=== PATIENT | female | born 1955 | race Caucasian/White ===

== ENCOUNTER 2016-06-24 02:53 | Inpatient (IN) | payer OTHER ==
[~2016-06-24] VITALS: Ht 162.6 cm; Wt 108.9 kg
[~2016-06-24 02:53] MED LIST: CHLORTHALIDONE25 M1 PO; CITALOPRAM HBR20 MG PO; CRESTOR20 M2 PO
--- NOTE | 2016-06-24 09:58 | Operative Report ---
Operative/Inv Procedure Report Surgery Date: 06/24/16 Name of Procedure: Right total hip arthroplasty Pre-Operative Diagnosis: Primary right hip osteoarthritis Post-Operative Diagnosis: Same Estimated Blood Loss: 50ml to 100ml Surgeon/Personal Financial Representative: TD FARRELL,Yasmani PEREZ Anesthesia: general endotracheal tube Implants: Size 8 secure fit Cristian femoral stem with a 127 neck angle Size 54 acetabulum Trident 36+0 Biolox femoral head Drains: None Specimens: Femoral head and acetabular reamings Microbiology: Urine Complications: None Condition: Stable Operative Indication: -60 year-old woman with a history of gradually worsening right hip pain. She had been evaluated elsewhere and was told that she needed a total hip arthroplasty. She was seen in our office as a second opinion and x-rays revealed near end-stage degenerative changes. She had a shallow acetabulum with edge loading the superior aspect of the hip. Due to these findings and patient' s persistent symptoms that interfere with normal activities of daily living, we also recommended total hip arthroplasty. She wished to proceed with this after risks, benefits and expectations were discussed which included but were not limited to persistent hip pain, need for subsequent surgery, infection, DVT, injury to blood vessel or nerve, anesthesia risks, dislocation and leg length discrepancy Operative/Procedure Note Note: Patient was brought to the operating room and transferred to the operating table. Once under appropriate anesthesia the patient was placed in a left lateral decubitus position with right side up. All bony prominences were well- padded. Axillary roll was placed. The right lower extremity was prepped and draped in standard fashion. Preoperative IV antibiotics were given prophylactically. A standard lateral incision was made for anticipated posterior lateral/superior approach of the hip. The incision was taken down sharply to the underlying fascia. The fascia was incised in line with the skin incision. There was significant depth to the wound. Hip was internally rotated placing the external rotators on tension. The piriformis was isolated. It was relatively smaller than normal. This was incised and reflected posteriorly. The interval between the gluteus minimus tendon and the superior capsule was identified and a retractor was placed in this interval. I also placed an inferior retractor delineating the inferior extent of the capsule. Patient had a fairly large effusion which was evacuated was clear fluid. A central portion of the posterior capsule was incised and reflected posteriorly. Superior and inferior portions of the capsule were excised. The central portion was tacked reflected posteriorly. Hip was dislocated. Severe end-stage degenerative changes and eburnated bone of the femoral head. The femoral neck cut was then made a stop on preoperative templating and intraoperative measurements. The acetabulum was visualized. There was significant severe osteoarthritis of the acetabulum. Remnants of the degenerative labral tissues were excised. Any soft tissues were excised with a large curette and rongeur. I then reamed the acetabulum starting with a 46 and ending with a size 53 for anticipated insertion of a size 54 Trident acetabulum. The acetabular fossa was copiously irrigated. A major there was no circumferential remnants of soft tissue. I then impacted the definitive size 54 Trident acetabulum with the appropriate anteversion and abduction based on patient's anatomy as well as the [place] tower. I then placed 2 screws in the safe zone in standard fashion by drilling measuring and placing appropriate length screws. Copious irrigation of the component followed. I then inserted the definitive polyethylene to fit a 36 mm femoral head. The polyethylene locking mechanism was confirmed. I then placed a lap sponge to protect the polyethylene during preparation of the femur. The hip was internally rotated 90 and flexed to about 60. Retractors were placed and then I used the box osteotome to lateralize my insertion site. This was followed by hand reamers up to a size 8 and I broached to a size 8 filled patient's proximal femur very well. I left the last broach in place and then did a closed reduction of the hip using the 36 mm +0 head. I trialed the 127 as well as 132. I was satisfied with the stability with both but I felt that she would benefit from the 127 neck angle to maximize her abductors based on my preoperative exam and her gait pattern preoperatively. I then dislocated the hip after confirming stability in all planes. I removed the trial components from the femur and then copiously irrigated the femoral canal. The definitive size 8 secure fit femoral stem was impacted in place with the 127 neck angle. The trunnion was dried and the definitive 36+0 Biolox femoral head was impacted in place. The locking mechanism was confirmed. The hip was reduced. There was jewish of the length of the lower extremity matching the other side as well as matching the measurements done preoperatively and intraoperatively. The stability was checked. No evidence of posterior instability with simultaneous flexion internal rotation and adduction. No evidence of anterior instability with simultaneous external rotation and extension. Copious irrigation of the hip followed. The posterior capsule was repaired the piriformis was repaired. Every level of closure was followed by copious irrigation. I did do a periarticular pericapsular injection of a cocktail which included ropivacaine with epinephrine and Toradol. The fascia was closed with interrupted #1 Vicryl suture. Subcutaneous tissues closed in 2-0 Vicryl in 2 layers due to the depth of the wound. Skin was closed with elise. Appropriate dressings were applied and patient was awakened and taken to recovery room in good condition. No intraoperative Locations. Blood loss was approximately 100 mL Discharge Disposition: PACU
--- NOTE | 2016-06-24 10:35 | RADIOLOGY REPORT ---
EXAMINATION: AP view of the right hip CLINICAL INFORMATION: Status post right total hip replacement. COMPARISON: None available. TECHNIQUE: Single AP view of the hip is obtained. FINDINGS: There are postoperative changes following right total hip arthroplasty. The prosthesis elements appear well aligned. No acute fractures are identified. Surgical elise are appreciated along the right thigh. There is mild subcutaneous gas. No radiopaque foreign bodies are identified. IMPRESSION: Expected postoperative changes following right total hip arthroplasty. No acute osseous findings.
[2016-06-24 11:30] VITALS: BP 130/58
--- NOTE | 2016-06-24 14:08 | PN- Orthopedic ---
Subjective Subjective: The patient was seen this afternoon postoperatively. She reports the pain is under adequate control with no complaints the current time. He was very pleased on how well she does with physical therapy today. Objective Vital Signs and I&Os Afebrile stable vital signs Physical Exam: Gen.: Alert and in no obvious distress Skin: Warm and dry Cardiac: S1-S2 regular Primary: Bilateral breath sounds equal decreased at bases Extremities: Bilateral lower extremities are warm without calf tenderness or significant edema. Gross motor and sensory are intact. Surgical dressing is clean, dry, and intact without signs of infection. Assessment/Plan Assessment/Plan Assessment: 60-year-old female status post right total hip arthroplasty. Postoperative patient is progressing as expected and her pain is under adequate control. Plan: Continue IV fluids a Sibley catheter until morning Strict I's and O's GI and DVT prophylaxis begin Coumadin first dose starting tonight Follow-up morning laboratory studies Continue current pain regiment Postoperative prophylactic antibiotics Out of bed with physical therapy patient is weightbearing as tolerated Core Measures/Miscellaneous Sibley Catheter Date In: 06/24/16 Still Needed? Yes Venous Thromboembolism VTE Risk Factors: Age > 40, Obesity, Surgery VTE Contraindications: No Contraindications VTE Prophylaxis Ordered Inpt: Mech & Pharm VTE Diagnosis: No Beta Demetra Is Beta Demetra a Home Med? Yes If Yes, Was This Ordered Today? Yes Antibiotics Is Patient on Antibiotics? Yes If Yes: prophylaxis
[2016-06-24 14:16] VITALS: BP 135/77
[2016-06-24 15:45] VITALS: BP 128/76
[2016-06-24 19:23] VITALS: BP 127/69
[2016-06-25 00:38] VITALS: BP 114/56
[2016-06-25 03:35] VITALS: BP 100/46
[2016-06-25 08:00] VITALS: BP 103/57
[2016-06-25 08:04] LABS: ABSOLUTE BASOPHIL COUNT 0 /CUMM (0.0-0.2); ABSOLUTE EOSINOPHIL COUNT 0 /CUMM (0.0-0.7); ABSOLUTE GRANULOCYTE CT 5.6 /CUMM (1.4-6.5); ABSOLUTE LYMPH COUNT 1.1 /CUMM (1.2-3.4); ABSOLUTE MONOCYTE COUNT 0.7 /CUMM (0.10-0.60); BASOPHIL % 0.1 % (0.0-2.0); EOSINOPHIL % 0.3 % (0-5); GRANULOCYTE % 75.7 % (42.2-75.2); HEMATOCRIT 29.2 % (37-47); MEAN CORPUSCULAR HGB 29.9 PG (27.0-31.0); MEAN CORPUSCULAR HGB CONC 33.6 G/DL (33.0-37.0); MEAN CORPUSCULAR VOLUME 89.1 FL (81.0-99.0); MEAN PLATELET VOLUME 7.7 FL (7.4-10.4); PLATELET COUNT 212 /CUMM (130-400); RBC DISTRIBUTION WIDTH 13.1 % (11.5-14.5); RED BLOOD CELL CT 3.27 /CUMM (4.20-5.40); WHITE BLOOD CELL COUNT 7.4 /CUMM (4.8-10.8)
[2016-06-25 09:00] LABS: PT 12.7 SEC (9.4-12.5)
[2016-06-25] MEDS ORDERED: RW (09:29)
--- NOTE | 2016-06-25 09:29 | PN- Orthopedic ---
See Addendum Subjective Subjective: Pain well controlled. Tolerating diet. No nausea. Out of bed with PT this morning without difficulty. No dizziness. No shortness of breath. No chest pains. Voiding well. Passing flatus but no bm yet. Anticipates discharge to home in the next 1-2 days. Objective Vital Signs and I&Os Vital Signs Date Time Temp Pulse Resp B/P Pulse O2 O2 Flow FiO2 Ox Delivery Rate 06/25 08 98.1 83 18 103/57 93 Room Air 06/25 0335 98.5 81 18 100/46 91 Room Air 06/25 0038 97.8 83 19 114/56 93 Room Air 06/24 204 150/78 06/24 2045 150/78 06/24 1923 99.0 85 20 127/69 95 Nasal 1.0L Cannula 06/24 1545 98.6 83 18 128/76 95 Nasal 1.0L Cannula 06/24 1454 76 135/77 06/24 1416 98.1 76 18 135/77 96 Nasal 2.0L Cannula 06/24 1145 97 Nasal 2.0L Cannula 06/24 1130 76 135/77 06/24 1130 98.4 68 18 130/58 97 Nasal 2.0L Cannula Intake & Output 06/25 1600 06/25 0800 06/25 0000 06/24 1600 06/24 0800 06/24 0000 Intake Total 950 475 680 Output Total 850 550 150 Balance 100 -75 530 Intake, IV 600 225 200 Intake, Oral 350 250 480 Output, Urine 850 550 150 Patient 240 lb Weight Physical Exam: General - alert & oriented x 3. comfortable. no acute distress. Lungs - clear bilaterally. no w/r/r. Cardiac - s1s2. reg. Abdomen - soft. bowel sounds appreciated. nontender. Extremities - warm b/l. right hip dressing c/d/i. nvi. hip pillow in place. calves soft and nontender. venodynes active b/l. Assessment/Plan Assessment/Plan 60-year-old female POD#1 s/p right total hip arthroplasty tolerating diet. d/c iv fluids lópez removed. due to void in 6-8 hours raeann-operative vanco completed f/u labs coumadin accordingly - dvt ppx continue PT daily dressing change tomorrow d/c planning for home in 1-2 days will d/w Core Measures/Miscellaneous López Catheter Date In: 06/24/16 Venous Thromboembolism VTE Risk Factors: Age > 40, Obesity, Surgery VTE Contraindications: No Contraindications VTE Prophylaxis Ordered Inpt: Mech & Pharm VTE Diagnosis: No Beta Demetra Is Beta Demetra a Home Med? Yes If Yes, Was This Ordered Today? Yes Antibiotics Is Patient on Antibiotics? Yes If Yes: prophylaxis
--- NOTE | 2016-06-25 09:31 | Patient Discharge Instructions ---
Discharge Instructions General Discharge Information You were seen/treated for: Primary right hip osteoarthritis You had these procedures: Surgery Date: 06/24/16 Name of Procedure: Right total hip arthroplasty Watch for these problems: fever>101.3, increased pain, redness/swelling/drainage Call Surgeon to remove: Lindsay No bath, but you may shower: Yes Other wound care: staple removal around post-op day#14. dry guaze dressing changes daily, right hip. Diet Continue normal diet: Yes Recommended Diet: Regular Limit DAILY fluid amt to mls: 1000 Additional DIET Information: coumadin considerations Activity Full Activity/No Limits: Yes Activity Self Limited: Yes Activity Limited to: Weight bear as tolerated Other activity limits: total hip precautions Additional ACTIVITY Info: rolling walker asssitance Acute Coronary Syndrome Inclusion Criteria At DC or during hospital stay patient has or had the following: ACS DIAGNOSIS No Discharge Core Measures Meds if any: Prescribed or Continued at Discharge Meds if any: NOT Prescribed or Continued at Discharge Congestive Heart Failure Inclusion Criteria At DC or during hospital stay patient has or had the following: CHF DIAGNOSIS No Discharge Core Measures Meds if any: Prescribed or Continued at Discharge Meds if any: NOT Prescribed or Continued at Discharge Cerebrovascular accident Inclusion Criteria At DC or during hospital stay patient has or had the following: CVA/TIA Diagnosis No Discharge Core Measures Meds if any: Prescribed or Continued at Discharge Meds if any: NOT Prescribed or Continued at Discharge Venous thromboembolism Inclusion Criteria VTE Diagnosis No VTE Type NONE VTE Confirmed by (Test) NONE Discharge Core Measures - Per Current guidelines, there needs to be overlap - treatment for the first 5 days of Warfarin therapy. - If discharged on Warfarin prior to 5 days of - overlap therapy, the patient will need to be - assessed for post discharge needs including - *Post discharge parental anticoagulation - *Warfarin and/or parental anticoagulation education - *Follow up date to check INR post discharge At least 5 days overlap therapy as Inpatient No Meds if any: Prescribed or Continued at Discharge Note: Overlap Therapy is Warfarin and Anticoagulant Meds if any: NOT Prescribed or Continued at Discharge
[2016-06-25] MEDS ORDERED: CARVEDILOL25 M1 PO (09:34)
[2016-06-25] MEDS ORDERED: ALTACE10 M2 PO (09:35)
[2016-06-25] MEDS ORDERED: CRESTOR40 M2 PO (09:35)
[2016-06-25] MEDS ORDERED: DOCUSATE SODIU100 M3 PO (09:38)
[2016-06-25] MEDS ORDERED: PERCOCET 5-3251 EACH PO (09:38)
[2016-06-25] MEDS ORDERED: COUMADIN5 M2 PO (09:38)
[2016-06-25 17:22] VITALS: BP 99/68
[2016-06-25 22:31] VITALS: BP 110/70
--- NOTE | 2016-06-26 06:56 | PN- Orthopedic ---
See Addendum Subjective Subjective: Patient seen this morning postoperatively day #2. She reports that her pain is under adequate control and has no other complaints at the current time. She is eager to try to go home possibly today but still has yet to do stairs with physical therapy. Objective Vital Signs and I&Os Vital Signs Date Time Temp Pulse Resp B/P Pulse O2 O2 Flow FiO2 Ox Delivery Rate 06/25 2230 98.7 76 20 110/70 90 Room Air 06/25 2126 82 138/76 06/25 2126 82 138/76 06/25 1722 97.1 76 18 99/68 93 06/25 1021 83 90/52 06/25 1020 83 90/52 06/25 0800 98.1 83 18 103/57 93 Room Air Intake & Output 06/26 0806/26 0000 06/25 1600 06/25 0800 06/25 0000 06/24 1600 Intake Total 048 815 9516 950 475 680 Output Total 300 625 200 850 550 150 Balance -60 -145 2140 100 -75 530 Intake, IV 300 600 225 200 Intake, Oral 363 921 9257 350 250 480 Number 0 0 0 Bowel Movements Output, Urine 300 625 200 850 550 150 Patient 240 lb Weight Physical Exam: Gen.: Alert and in obvious distress Skin: Warm and dry Extremities: Bilateral lower extremities are warm without calf tenderness or significant edema. Gross motor and sensory are intact. Right hip surgical incision was clean, dry, and intact without signs of infection. Assessment/Plan Assessment/Plan Assessment: 60-year-old female status post right total hip arthroplasty postoperative day #2. The patient is progressing as expected and her pain is under adequate control. Plan: Continue to work with physical therapy patient is weightbearing as tolerated she needs to work on stairs in order to be safe to go home. Follow-up morning laboratory studies and dose Coumadin for an INR between 2 and 3 Daily dry dressing change Continue current pain regiment GI and DVT prophylaxis Core Measures/Miscellaneous Sibley Catheter Date In: 06/24/16 Venous Thromboembolism VTE Risk Factors: Age > 40, Obesity, Surgery VTE Contraindications: No Contraindications VTE Prophylaxis Ordered Inpt: Mech & Pharm VTE Diagnosis: No Beta Demetra Is Beta Demetra a Home Med? Yes If Yes, Was This Ordered Today? Yes Antibiotics Is Patient on Antibiotics? No
[2016-06-26 07:57] LABS: ABSOLUTE BASOPHIL COUNT 0 /CUMM (0.0-0.2); ABSOLUTE EOSINOPHIL COUNT 0.2 /CUMM (0.0-0.7); ABSOLUTE GRANULOCYTE CT 3.8 /CUMM (1.4-6.5); ABSOLUTE LYMPH COUNT 1.4 /CUMM (1.2-3.4); ABSOLUTE MONOCYTE COUNT 0.6 /CUMM (0.10-0.60); BASOPHIL % 0.4 % (0.0-2.0); EOSINOPHIL % 2.7 % (0-5); GRANULOCYTE % 63.2 % (42.2-75.2); HEMATOCRIT 27.1 % (37-47); MEAN CORPUSCULAR HGB 30.8 PG (27.0-31.0); MEAN CORPUSCULAR HGB CONC 34.6 G/DL (33.0-37.0); MEAN CORPUSCULAR VOLUME 88.9 FL (81.0-99.0); MEAN PLATELET VOLUME 7.8 FL (7.4-10.4); PLATELET COUNT 185 /CUMM (130-400); RBC DISTRIBUTION WIDTH 13.2 % (11.5-14.5); RED BLOOD CELL CT 3.05 /CUMM (4.20-5.40); WHITE BLOOD CELL COUNT 6.1 /CUMM (4.8-10.8)
[2016-06-26 08:10] VITALS: BP 100/52
[2016-06-26 08:24] LABS: PT 12.4 SEC (9.4-12.5)
--- NOTE | 2016-06-26 09:39 | Surgical Discharge Summary ---
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 Home Who Do You Live With? Spouse Services at Home: None What is Your Primary Language? Swazi Review of Systems: see h&p Hospital Course Course Attending Physician: TD FARRELL,[facility] Primary Care Physician: LENCHO CANTRELL MD Hospital Course: Electively scheduled right total hip replacement by on 06/24/16 for primary right hip osteoarthritis, which went routinely. Started coumadin on the day of her surgery for blood clot risk reduction. Pain management with iv transitioned to oral medication. Consulted hospitalist on post-op day#2 for hyponatremia (na 126), elevated creatinine (cr 1.1), for which iv fluids was restarted. Coumadin dose adjusted daily as per blood draws for PT/INR. Doing well with PT. Seen by OT for adls and review of hip precautions, as her plan is for discharge to home tomorrow (post-op day#3) pending improvement of her current hyponatremia and mild dehydration. 06/27/[address] Mcintosh (via Brock Eagle M.D.) patient can be discharged home on 1000mL fluid restriction with NaCl 1000mg tabs BID and hold diuretics and NASIR inhibitors. Repeat Na levels tomorrow and Friday. Have labs sent to Dr. Higginbotham. Complications: None Allergies: Coded Allergies: No Known Allergies (06/14/16) Pertinent Lab Results: INR 1.18 (06/26/16) Disposition Summary Disposition Principal Diagnosis: Primary right hip osteoarthritis Additional Diagnosis: Surgery Date: 06/24/16 Name of Procedure: Right total hip arthroplasty post-op hyponatremia, mild dehydration requiring iv fluids Discharge Disposition: home health services Discharge Instructions General Discharge Information Code Status: Full Code Patient's Diet: regular, as tolerated. coumadin considerations. Patient's Activity: weight bearing as tolerated total hip precautions rolling walker assistance continue PT Follow-Up Instructions/Appts: call to schedule follow up appointment within one month after discharge staple removal around post-op day#14 blood draws for PT/INR. goal INR 2-3. dose adjustment of coumadin accordingly. dry guaze dressing changes daily, right hip Medications at Discharge Discharge Medications: Stop taking the following medications: Chlorthalidone (Chlorthalidone) 25 MG TABLET ORAL DAILY Ramipril (Altace) 10 MG CAPSULE ORAL TWICE DAILY Carvedilol (Carvedilol) (Unknown Strength) TABLET ORAL TWICE DAILY Ramipril (Altace) (Unknown Strength) CAPSULE ORAL TWICE DAILY Rosuvastatin Calcium (Crestor) (Unknown Strength) TABLET ORAL DAILY Rosuvastatin Calcium (Crestor) (Unknown Strength) TABLET ORAL DAILY Continue taking these medications: Citalopram Hydrobromide (Citalopram HBr) 20 MG TABLET 1 Tablet ORAL DAILY Comments: DOCUMENTED PER CMR DURING PRE-SX INTERVIEW Carvedilol (Carvedilol) 25 MG TABLET 1 Tablet ORAL TWICE DAILY Rosuvastatin Calcium (Crestor) 40 MG TABLET 1 Tablet ORAL DAILY Start taking the following new medications: Docusate Sodium (Docusate Sodium) 100 MG CAPSULE 100 Milligram ORAL TWICE DAILY as needed for CONSTIPATION Days = 14 No Refills Instructions: stool softener available over the counter Rolling Walker (Rolling Walker) UNIT 1 Unit SEE INSTRUCTIONS Qty = 1 No Refills Instructions: Use as instructed. Oxycodone HCl/Acetaminophen (Percocet 5-325 MG Tablet) 5 MG-325 MG TABLET 1-2 Tablet ORAL EVERY 4-6 HOURS NEEDED as needed for pain control Qty = 30 No Refills Instructions: take as directed, as needed. do not combine with tylenol. Warfarin Sodium (Coumadin) 5 MG TABLET 1 Tablet ORAL DAILY Qty = 30 No Refills Instructions: dose adjustment as per blood draws for PT/INR. goal INR 2-3. Copies To: TAMIA FARRELL,LENCHO [facility]
--- NOTE | 2016-06-26 10:21 | Cons- Medical ---
JENNY ARELLANO 06/26/16 1016: General Information and HPI Consulting Request Date of Consult: 06/26/16 Requested By: CHRIS HIGGINBOTHAM MD Reason for Consult: Hyponatremia Source of Information: patient Exam Limitations: no limitations History of Present Illness: She is 60-year-old woman with past medical history of hypertension, hyperlipidemia, osteoarthritis, anxiety and obesity, status post right total hip arthroplasty on 06/24/2016 by Chris Higginbotham MD, now postop day 2. Medical consult was called because patient is hyponatremic, sodium 126. Upon my interview with patient she does not have any complaints. Her pain is better controlled and she has been working with physical therapy. She feels her throat is still dry and her urine is darker in color. She has been eating drinking well. She does not have any bowel movement yet. She denies any history of smoking or use of illicit drugs. She drinks 2-3 glasses of wine every night. 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 She has 3 kids. She has a strong family history of cancers, breast cancer in sister and maternal grandmother and pancreatic cancer in brother. Father in his 60s because of heart attack. Allergies/Medications Allergies: Coded Allergies: No Known Allergies (06/14/16) Home Med List: Carvedilol 25 MG TABLET 1 TAB PO BID high blood pressure (Reported) Chlorthalidone 25 MG TABLET 1 TAB PO DAILY BP/DIURETIC (Reported) Citalopram Hydrobromide (Citalopram HBr) 20 MG TABLET 1 TAB PO DAILY ANXIETY (Reported) Docusate Sodium 100 MG CAPSULE 100 MG PO BID PRN CONSTIPATION stool softener available over the counter Oxycodone HCl/Acetaminophen (Percocet 5-325 MG Tablet) 5 MG-325 MG TABLET 1-2 TAB PO Q4-6 PRN PRN pain control take as directed, as needed. do not combine with tylenol. Ramipril (Altace) 10 MG CAPSULE 1 CAP PO BID high blood pressure (Reported) Rosuvastatin Calcium (Crestor) 40 MG TABLET 1 TAB PO DAILY hypercholesterolemia (Reported) Warfarin Sodium (Coumadin) 5 MG TABLET 1 TAB PO DAILY blood clot risk reduction dose adjustment as per blood draws for PT/INR. goal INR 2-3. Current Medications: Current Medications Sig/Judy Start time Last Medication Dose Route Stop Time Status Admin Al Hydroxide/Mg 30 ML Q6P PRN 06/24 1200 AC Hydroxide PO Atorvastatin Calcium 40 MG 1700 06/24 1700 AC 06/25 PO 1738 Carvedilol 25 MG BID 06/24 1000 AC 06/26 PO 0920 Chlorthalidone 25 MG DAILY 06/24 1000 AC 06/24 PO 1456 Citalopram 20 MG DAILY 06/24 1000 AC 06/26 Hydrobromide PO 0918 Docusate Sodium 100 MG BID 06/25 1000 AC 06/26 PO 0918 Lisinopril 10 MG BID 06/24 1000 AC 06/25 PO 2127 Melatonin 5 MG AT BEDTIME PRN 06/24 2115 AC 06/24 PO 2220 Morphine Sulfate 2 MG Q3P PRN 06/24 1200 AC IV Morphine Sulfate 4 MG Q3P PRN 06/24 1200 AC IV Ondansetron HCl 4 MG Q6P PRN 06/24 1200 AC IV Oxycodone HCl 10 MG Q12 06/24 1000 AC 06/26 PO 0920 Oxycodone/ 1 TAB Q4P PRN 06/24 1200 AC 06/25 Acetaminophen PO 1237 Oxycodone/ 2 TAB Q4P PRN 06/24 1200 AC 06/26 Acetaminophen PO 0554 Polyethylene Glycol 17 GM DAILY 06/25 1000 AC 06/26 PO 0918 Polyethylene Glycol 17 GM DAILY NEEDED PRN 06/24 1200 AC PO Senna/Docusate Sodium 2 TAB AT BEDTIME NEED.. 06/24 1200 AC 06/25 PO 2127 Sodium Chloride 1,000 ML Q13H 06/26 0930 AC IV Warfarin Sodium 7.5 MG COUMADIN 1700 ONE 06/26 1700 AC PO 06/26 1701 Warfarin Sodium 5 MG COUMADIN 1700 ONE 06/25 1700 DC 06/25 PO 06/25 1701 1738 Review of Systems Review of Systems Constitutional: Reports: see HPI. Past History Medical History Blood Transfusion Hx: No Neurological: NONE EENT: NONE Cardiovascular: hypertension, hyperlipidemia Respiratory: NONE Gastrointestinal: NONE Hepatic: NONE Renal: NONE Musculoskeletal: osteoarthritis Psychiatric: anxiety Endocrine: NONE Blood Disorders: NONE Cancer(s): NONE HOOP CUTTER/Reproductive: NONE Surgical History Surgical History: hip replacement Psychosocial History Where Do You Live? Home Services at Home: None Smoking Status: Never Smoked Exam & Diagnostic Data Last 24 Hrs of Vital Signs/I&O Vital Signs Date Time Temp Pulse Resp B/P Pulse O2 O2 Flow FiO2 Ox Delivery Rate 06/26 0920 73 108/50 06/26 0920 73 108/50 06/26 0810 98.1 73 18 100/52 90 Room Air 06/25 2231 98.7 76 20 110/70 90 Room Air 06/25 2126 82 138/76 06/25 2126 82 138/76 06/25 1722 97.1 76 18 99/68 93 Intake & Output 06/26 1600 06/26 0800 06/26 0000 Intake Total 240 480 Output Total 300 625 Balance -60 -145 Intake, Oral 240 480 Number 0 0 Bowel Movements Output, Urine 300 625 Physical Exam General Appearance: well developed/nourished, no apparent distress, alert, awake , comfortable Head: atraumatic, normal appearance Eyes: Bilateral: normal appearance. Ears, Nose, Throat: dry mucous membranes Neck: supple Respiratory: normal breath sounds, chest non-tender, no respiratory distress, lungs clear Cardiovascular: regular rate/rhythm Gastrointestinal: soft, non-tender Extremities: right hip bandage clean and intact. no extremities edema or tenderness. Pulses intact Neurologic/Psych: no motor/sensory deficits, awake, alert, oriented x 3 Last 24 Hrs of Labs/Kishan: Laboratory Tests 06/26/16 0635: Anion Gap 5, Estimated GFR 51 L, BUN/Creatinine Ratio 23.6, PT 12.4, INR 1.18, CBC w Diff NO MAN DIFF REQ, RBC 3.05 L, MCV 88.9, MCH 30.8, RDW 13.2, MPV 7.8, Gran % 63.2, Lymphocytes % 23.1, Monocytes % 10.6 H, Eosinophils % 2.7, Basophils % 0.4, Absolute Granulocytes 3.8, Absolute Lymphocytes 1.4, Absolute Monocytes 0.6, Absolute Eosinophils 0.2, Absolute Basophils 0, PUBS MCHC 34.6 Assessment/Plan Assessment/Plan 60-year-old female status post right total hip arthroplasty postoperative day # 2. She has been found to have hyponatremia. Her sodium level was 130 yesterday and today it is 126. Her preop blood work was reviewed. It was done on 2016 and sodium level was 139. We don't have any previous records for blood work in [facility] but she was never told by her PCP that she was hyponatremic in the past. I think most likely cause of hyponatremia in this case is dehydration and volume depletion. It can also be considered as her kidney functions are also slightly elevated today. Other possibility could be SIADH postoperatively. She does not have any cardiac history or kidney problems. Upon reviewing her medications, chlorthalidone and Celexa (less likely) can cause hyponatremia. We will check plasma osmolality and urine lites. We will continue IV fluids, normal saline at 75 mL/h at least for today. We will check sodium level again later today and in morning. We will also check her kidney functions in a.m. Will avoid nephrotoxins. We will hold chlorthalidone for now because patient's blood pressure is also on lower side. We can also check thyroid function tests. We will keep a close eye on patient's mental status. After getting test results and following above-mentioned recommendations we will proceed further. Problem List: 1. Hyponatremia Consult Acknowledgment - Thank you for your consult request. CY FARRELL,[facility] 06/26/16 1217: Assessment/Plan Consult Acknowledgment - Thank you for your consult request. Attending MD Review Statement Attending Statement Attending MD Statement: examined this patient, discuss w/resident/PA/SYSTEMS ACCOUNTANT, agreed w/resident/PA/SYSTEMS ACCOUNTANT, discussed with family, reviewed EMR data (avail), discussed with nursing, reviewed images, amended to note Attending Assessment/Plan: 60 y/o F with pmh sig for hypertension, hyperlipidemia, osteoarthritis, anxiety and obesity, status post right total hip arthroplasty on 06/24/2016 by Chris Higginbotham MD, now postop day. Medical consult has been obtained for hyponatremia. Patient herself feels well. Her pain is well controlled. She is working with physical therapy. Her preop labs which was done on June 14 showed normal sodium levels. She is on diuretic chlorthalidone. Off note she also has a bump in her creatinine as well as BUN. Her bicarbonate is also high which is consistant with contraction alkalosis. She is also on NASIR and Celexa. She denies any shortness of breath, any chest pain or abdominal pain. Vital Signs Date Time Temp Pulse Resp B/P Pulse O2 O2 Flow FiO2 Ox Delivery Rate 06/26 0920 73 108/50 06/26 0920 73 108/50 06/26 0810 98.1 73 18 100/52 90 Room Air 06/25 2231 98.7 76 20 110/70 90 Room Air 06/25 2126 82 138/76 06/25 2126 82 138/76 06/25 1722 97.1 76 18 99/68 93 on exam; aox3, nad. heent; mucous membranes are somewaht dry. cv; s1,s2, rrr. resp; clear abd; soft, nt, bs+ ext; no edema. dressing on right hip. Laboratory Tests 06/26 0635 Chemistry Sodium (137 - 145 mmol/L) 126 L Potassium (3.5 - 5.1 mmol/L) 3.9 Chloride (98 - 107 mmol/L) 88 L Carbon Dioxide (22 - 30 mmol/L) 33 H Anion Gap (5 - 16) 5 BUN (7 - 17 mg/dL) 26 H Creatinine (0.5 - 1.0 mg/dL) 1.1 H Estimated GFR (>60 ml/min) 51 L BUN/Creatinine Ratio (7 - 25 %) 23.6 Serum Osmolality (285 - 295 MOSM/KG) 275 L TSH (0.270 - 4.200 uIU/mL) Pending Free T4 (0.78 - 2.44 ng/dL) 1.48 Thyroxine (T4) (4.5 - 10.9 ug/dL) 9.6 Total T3 (0.97 - 1.69 ng/mL) Pending Coagulation PT (9.4 - 12.5 SEC) 12.4 INR (0.90 - 1.19) 1.18 Hematology CBC w Diff NO MAN DIFF REQ WBC (4.8 - 10.8 /CUMM) 6.1 RBC (4.20 - 5.40 /CUMM) 3.05 L Hgb (12.0 - 16.0 G/DL) 9.4 L Hct (37 - 47 %) 27.1 L MCV (81.0 - 99.0 FL) 88.9 MCH (27.0 - 31.0 PG) 30.8 RDW (11.5 - 14.5 %) 13.2 Plt Count (130 - 400 /CUMM) 185 MPV (7.4 - 10.4 FL) 7.8 Gran % (42.2 - 75.2 %) 63.2 Lymphocytes % (20.5 - 51.1 %) 23.1 Monocytes % (1.7 - 9.3 %) 10.6 H Eosinophils % (0 - 5 %) 2.7 Basophils % (0.0 - 2.0 %) 0.4 Absolute Granulocytes (1.4 - 6.5 /CUMM) 3.8 Absolute Lymphocytes (1.2 - 3.4 /CUMM) 1.4 Absolute Monocytes (0.10 - 0.60 /CUMM) 0.6 Absolute Eosinophils (0.0 - 0.7 /CUMM) 0.2 Absolute Basophils (0.0 - 0.2 /CUMM) 0 PUBS MCHC (33.0 - 37.0 G/DL) 34.6 Assessment and recommendations: 60 y/o F with pmh sig for hypertension, hyperlipidemia, osteoarthritis, anxiety and obesity, status post right total hip arthroplasty on 06/24/2016 by Chris Higginbotham MD, now postop day. Medical consult has been obtained for hyponatremia. Patient also has slightly high Cr/BUN/bicarb consistent with dehydration/ contraction alkalosis. Post op care per ortho. Will recommend to obatine Urine Osmolality, Urine lytes, Plasma Osmolaity. Will also trecommend to Hold Chlorthalidone as well as Lisinopril. Agree with IV hydration with NS until we have above lab results available. Encourage PO intake, ambulation with PT. Continue coreg with holding parameters. Pain management adequate. DVt Px; patient on coumadin per ortho. D/W surgical PA. Than you for allowing us to participate in the care of your patient, will follow along with you.
--- NOTE | 2016-06-26 14:00 | NUR ---
LATE ENTRY: PT'S URINE RESULTS NOTED. DR. VILLEDA MADE AWARE. WILL CONT TO MONITOR.
[2016-06-26 16:19] VITALS: BP 116/68
--- NOTE | 2016-06-26 20:12 | NUR ---
LATE ENTRY: PT'S LBM 4 DAYS AGO ON 06/22/16. SCHEDULED MEDICINE ADMINISTERED WITH NO EFFECT. SURGICAL PA JC CONTACTED. SNO FOR MILK OF MAGNESIA. NIGHT RN UPDATED. TO MONITOR.
[2016-06-26 23:40] VITALS: BP 100/60
--- NOTE | 2016-06-27 07:15 | PN- Orthopedic ---
Subjective Subjective: The patient was seen this morning postoperatively day #3. She reports her pain is under adequate control and has no other complaints the current time. Objective Vital Signs and I&Os Vital Signs Date Time Temp Pulse Resp B/P Pulse O2 O2 Flow FiO2 Ox Delivery Rate 06/26 2340 98.2 82 18 100/60 95 Room Air 06/26 2136 84 122/70 02/ 1619 98.8 85 18 116/68 92 Room Air 06/26 0920 73 108/50 06/26 0920 73 108/50 06/26 0900 92 Room Air 06/26 0810 98.1 73 18 100/52 90 Room Air Intake & Output 06/27 0806/27 0000 06/26 1600 06/26 0800 06/26 0000 06/25 1600 Intake Total 100 950 944 126 2907 Output Total 976 432 2107 300 625 200 Balance -750 -750 -150 -60 -145 2140 Intake, IV 450 300 Intake, Oral 100 500 535 661 1236 Number 0 0 0 0 Bowel Movements Output, Urine 236 909 6340 300 625 200 Physical Exam: Gen.: Alert and obvious distress Skin: Warm and dry Extremities: Bilateral lower extremities are warm without calf tenderness or significant edema. Gross motor and sensory are intact. Surgical dressing is clean, dry, and intact without signs of infection. Assessment/Plan Assessment/Plan Assessment: 60-year-old female status post right total hip arthroplasty postoperative day #3. From a surgical standpoint the patient is progressing as expected, her pain is under adequate control, and she is ambulating well with physical therapy. Plan: Follow-up morning laboratory studies as well as medical consultation recommendations. Should the patient warrants further staying in the hospital would consider transferring service. Continue to work with physical therapy Daily dry dressing changes We dose Coumadin today for INR between 2 and 3 Continue current pain regiment GI and DVT prophylaxis Core Measures/Miscellaneous Sibley Catheter Date In: 06/24/16 Venous Thromboembolism VTE Risk Factors: Age > 40, Obesity, Surgery VTE Contraindications: No Contraindications VTE Prophylaxis Ordered Inpt: Mech & Pharm VTE Diagnosis: No Beta Demetra Is Beta Demetra a Home Med? Yes If Yes, Was This Ordered Today? Yes Antibiotics Is Patient on Antibiotics? No
[2016-06-27 08:07] LABS: ABSOLUTE BASOPHIL COUNT 0 /CUMM (0.0-0.2); ABSOLUTE EOSINOPHIL COUNT 0.1 /CUMM (0.0-0.7); ABSOLUTE GRANULOCYTE CT 4.2 /CUMM (1.4-6.5); ABSOLUTE LYMPH COUNT 0.9 /CUMM (1.2-3.4); ABSOLUTE MONOCYTE COUNT 0.6 /CUMM (0.10-0.60); BASOPHIL % 0.4 % (0.0-2.0); EOSINOPHIL % 1.8 % (0-5); GRANULOCYTE % 71.3 % (42.2-75.2); HEMATOCRIT 25.2 % (37-47); MEAN CORPUSCULAR HGB 30.1 PG (27.0-31.0); MEAN CORPUSCULAR HGB CONC 34.2 G/DL (33.0-37.0); MEAN CORPUSCULAR VOLUME 88.2 FL (81.0-99.0); MEAN PLATELET VOLUME 7.8 FL (7.4-10.4); PLATELET COUNT 192 /CUMM (130-400); RBC DISTRIBUTION WIDTH 13.1 % (11.5-14.5); RED BLOOD CELL CT 2.86 /CUMM (4.20-5.40); WHITE BLOOD CELL COUNT 5.8 /CUMM (4.8-10.8)
[2016-06-27 08:14] LABS: PT 13.1 SEC (9.4-12.5)
[2016-06-27 08:57] VITALS: BP 104/53
[2016-06-27 09:41] VITALS: BP 104/53
--- NOTE | 2016-06-27 09:42 | PN- Medicine Consult ---
JENNY ARELLANO 06/27/16 0923: Assessment/Plan Assessment/Plan Assessment: 60-year-old female status post right total hip arthroplasty postoperative day # 3. Her plasma osmolality is low, 275. Her urine osmolality is also low, 201. Urine sodium is 9 and FENa is 0.2. Her thyroid functions are normal. There is possibility of postoperative SIADH vs diuretic induced vs polydipsia. IV fluids were discontinued yesterday and she was put on thousand cc fluid restriction. Yesterday repeat sodium was 125 and this morning it is 127. Plan: - Closer monitoring of sodium levels. Can repeat labs later today to check sodium. - We'll increase free water restriction to 800 mL - Continue holding diuretics and lisinopril - Will start patient on salt tabs 1 g 3 times a day. Problem List: 1. Hyponatremia Subjective Subjective: Patient was seen this morning. She is status post right total hip arthroplasty postoperative day #3. She reports constipation he does not have any bowel movement since admission. She is passing flatus and denies any nausea, vomiting , abdominal pain. Her pain is better controlled. She is working with physical therapy. Eating drinking well. Hemodynamically stable. Review of Systems Constitutional: Reports: see HPI. Objective Last 24 Hrs of Vital Signs/I&O Vital Signs Date Time Temp Pulse Resp B/P Pulse O2 O2 Flow FiO2 Ox Delivery Rate 06/27 0857 98.4 86 18 104/53 92 Room Air 06/26 2340 98.2 82 18 100/60 95 Room Air 06/26 2136 84 122/70 06/26 1619 98.8 85 18 116/68 92 Room Air Intake & Output 06/27 1600 06/27 0800 06/27 0000 Intake Total 100 Output Total 1000 850 Balance -1000 -750 Intake, Oral 100 Output, Urine 1000 850 Physical Exam General Appearance: well developed/nourished, no apparent distress, alert, awake , obese Cardiovascular: regular rate/rhythm Respiratory: normal breath sounds, chest non-tender Abdomen: normal bowel sounds, soft, non-tender Extremities: no edema, right hip bandage intact. Current Medications: Current Medications Sig/Judy Start time Last Medication Dose Route Stop Time Status Admin Al Hydroxide/Mg 30 ML Q6P PRN 06/24 1200 AC Hydroxide PO Atorvastatin Calcium 40 MG 1700 06/24 1700 AC 06/26 PO 1904 Carvedilol 25 MG BID 06/24 1000 AC 06/26 PO 2136 Chlorthalidone 25 MG DAILY 06/24 1000 DC 06/24 PO 1456 Citalopram 20 MG DAILY 06/24 1000 AC 06/26 Hydrobromide PO 0918 Docusate Sodium 100 MG BID 06/25 1000 AC 06/26 PO 0918 Lisinopril 10 MG BID 06/24 1000 DC 06/25 PO 2127 Magnesium Hydroxide 30 ML ONE ONE 06/26 1930 DC 06/26 PO 06/26 193 2136 Melatonin 5 MG AT BEDTIME PRN 06/24 2115 AC 06/24 PO 2220 Morphine Sulfate 2 MG Q3P PRN 06/24 1200 AC IV Morphine Sulfate 4 MG Q3P PRN 06/24 1200 AC IV Ondansetron HCl 4 MG Q6P PRN 06/24 1200 AC IV Oxycodone HCl 10 MG Q12 06/24 1000 AC 06/26 PO 2137 Oxycodone/ 1 TAB Q4P PRN 06/24 1200 AC 06/26 Acetaminophen PO 1638 Oxycodone/ 2 TAB Q4P PRN 06/24 1200 AC 06/26 Acetaminophen PO 0554 Patient Medication 1 ED .STK-MED ONE 06/26 1356 [place] Teaching ED 06/26 1357 Polyethylene Glycol 17 GM DAILY 06/25 1000 AC 06/26 PO 0918 Polyethylene Glycol 17 GM DAILY NEEDED PRN 06/24 1200 AC PO Senna/Docusate Sodium 2 TAB AT BEDTIME NEED.. 06/24 1200 AC 06/25 PO 2127 Sodium Chloride 1,000 ML Q13H 06/26 0930 DC 06/26 IV 1040 Warfarin Sodium 7.5 MG COUMADIN 1700 ONE 06/26 1700 DC 06/26 PO 06/26 1701 1904 Results Last 24 Hrs Lab/Kishan Results: Laboratory Tests 06/27/16 0625: Anion Gap 3 L, Estimated GFR > 60, BUN/Creatinine Ratio 32.2 H, PT 13.1 H, INR 1.25 H, CBC w Diff NO MAN DIFF REQ, RBC 2.86 L, MCV 88.2, MCH 30.1, RDW 13.1, MPV 7.8, Gran % 71.3, Lymphocytes % 16.2 L, Monocytes % 10.3 H, Eosinophils % 1.8, Basophils % 0.4, Absolute Granulocytes 4.2, Absolute Lymphocytes 0.9 L, Absolute Monocytes 0.6, Absolute Eosinophils 0.1, Absolute Basophils 0, PUBS MCHC 34.2 06/26/16 1800: Sodium Cancelled, Potassium Cancelled, Chloride Cancelled, Carbon Dioxide Cancelled, Anion Gap Cancelled, BUN Cancelled, Creatinine Cancelled, BUN/ Creatinine Ratio Cancelled 06/26/16 1729: Anion Gap 7, Estimated GFR 57 L, BUN/Creatinine Ratio 29.0 H 06/26/16 1230: Urine Osmolality Cancelled 06/26/16 1230: Urine Osmolality 201 L, Ur Random Creatinine 35.4, Ur Random Sodium 9 L, Ur Random Potassium 14.6, Fraction Sodium Excret 0.2 CY FARRELLKAREN 06/27/16 1138: Attending MD Review Statement Attending Sign Off Attending Cosign Statement: I have: examined this patient, reviewed aval EMR data, personally reviewd images, discussd w/resident/PA/CORE ANALYST, discussed mgmt plan w/sander, discussed mgmt plan w/CM, discussed mgmt plan w/pt, agreed w/resident/PA/CORE ANALYST, amended to note. Other Findings: Patient seen and examined, offers no complaints. Sodium is slightly better at 127. Vital signs are stable but blood pressure remains slightly on the low side without antihypertensives. At this point ideally speaking her sodium should be 130 or above befre her discharg. I was told by orthopedic attending that patient had requested to go home. Due to the fact that patient is asymptomatic and sodium is improved slightly, she can be discharged home as far as we make sure that she goes with very clear instructions. She should have a repeat bloodwork done tomorrow. The results should be faxed to her primary care doctor and Jorge Luis Higginbotham MD. We should be checking her BEP. She should continue free water restrictin at 1000cc for another 3-4 days. He should continue to hold her NASIR inhibitor as well as diuretics at least through the weekend. She should be continued on salt tabs at least through the weekend. She should have a repeat blood work check (BEP) on Friday, July 01 2016. Those results should also be faxed to Jorge Luis Higginbotham MD and her primary care doctor. Patient will be getting home visiting nurse. Blood work will be drawn through the visiting nurses. She can be continued on her beta sherron and other medications. DVT prophylaxis, patient is on Coumadin per ortho.
[2016-06-27] MEDS ORDERED: ALTACE5 M2 PO (12:10)
[2016-06-27] MEDS ORDERED: CARVEDILOL3.125 M1 PO (12:10)
== END 2016-06-27 13:50 | disposition home health service (06) | DRG 470 ==
LOC: ENRESERVTM → ENRESERVDT → ENPENDDIS 02:53 → 2NB 02:53 → SDA 02:53 → 2NB 11:31
PROVIDERS: Nurse Practitioner; Physician Assistant; Physician Assistant Surgical; ADMIT Orthopaedic Surgery
PROC: 0SR904A Replacement of Right Hip Joint with Ceramic on Polyethylene Synthetic Substitute, Uncemented, Open Approach (ICD-10-PCS; principal; 2016-06-24)
DX: M16.11 Unilateral primary osteoarthritis, right hip (principal); Z68.41 Body mass index [BMI] 40.0-44.9, adult; I10 Essential (primary) hypertension; E66.9 Obesity, unspecified; E66.01 Morbid (severe) obesity due to excess calories; E78.5 Hyperlipidemia, unspecified
CPT/HCPCS: 2NBSP; 84133; 84300; 36415; 73501; 82436; 82570; 87086; 88304; 97110-GO; 97116-GO; 97161-GP; 97165-GO; 97530-GO; J0131; J0171; J1100; J1885; J2405; J2795; J3370; J7060